=== PATIENT | male | born 1960 | race Caucasian/White ===

== ENCOUNTER → 2017-12-04 | Outpatient (CLI) | payer BC ==
--- NOTE | 2017-12-04 16:16 | CPEEG ---
[f rep st] ELECTROENCEPHALOGRAM DATE OF STUDY: INTERPRETATION: This EEG contains a [id number] degree of focal slowing over the left temporal head region. These findings could be consistent with a focal disturbance of cerebral function or a lesion in these regions. There were no definite potentially epileptogenic abnormalities present during the awake or sleep recordings. REPORT: This EEG contains 9-10 Hz alpha activity over the posterior head regions. There was no abnormal activation at rest. The patient then had activation procedures of photic stimulation or hyperventilation. With photic stimulation, there was no abnormal activation. After hyperventilation, the patient developed some [id number] focal slowing over the left temporal head region composed of irregular theta frequency activity. As the study progressed, the patient became drowsy and fell asleep. There was no abnormal epileptiform activation during drowsiness, sleep, or during times of arousal. /[id number]/MODL MTDD
== END ==
LOC: FCPNEURO 13:46
PROVIDERS: ATTEND Psychiatry & Neurology Neurology
DX: R44.2 Other hallucinations (principal); R94.01 Abnormal electroencephalogram [EEG]

== ENCOUNTER → 2018-09-03 | Outpatient (CLI) | payer OTHER | LOC: FCPNEURO 20:00 | PROVIDERS: ATTEND Student in an Organized Health Care Education/Training Program | DX: G47.33 Obstructive sleep apnea (adult) (pediatric) (principal) ==